=== PATIENT | female | born 1970 | race Caucasian/White ===

== ENCOUNTER 2017-12-13 10:17 | Emergency (ER) | payer OTHER ==
[~2017-12-13] VITALS: Ht 157.5 cm; Wt 70.0 kg
[~2017-12-13 10:17] MED LIST: CALC1TAB10 PO; CINN1CAP2 PO; CITA40TA12 PO; LEVO88TA PO; MULTIVITAMIN PACKET PO; RANI300T2 PO
[2017-12-13 10:23] VITALS: TEMP 36.7; Ht 157.5 cm; Wt 70.0 kg
[2017-12-13] MEDS ORDERED: ACETAMINOPHEN 500 MG TAB PO STA (10:45)
--- NOTE | 2017-12-13 10:46 | EMERGENCY ROOM VISIT NOTE ---
History Report prepared by Jesenia: Marielena Castillo Under the Supervision of: Dr. Freddy Sargent M.D. First contact with patient: 10:20 Chief Complaint: URINARY SYMPTOMS Stated Complaint: BLADDER,DOC REFERRED History of Present Illness The patient is a 47 year old white female with a past medical history of hypothyroidism, breast lumpectomy, and left kidney donation who presents to the ED with a cc of constant urinary symptoms beginning yesterday. Pt states that she has been having dysuria and burning with urination. Today she is complaining of pressure and right back pain that radiates into the RLQ of her abdomen. She reports that she took Diflucan yesterday and it did improve her symptoms. Positive urinary urgency and pressure. Negative fever, leg pain and swelling. She notes that her most recent creatinine was 2.0. Source of History: patient Onset: yesterday Position: other (urinary) Quality: burning Timing: constant Associated Symptoms: + abdominal pain, + back pain, + urinary symptoms, No fevers Note: Pt denies leg pain and swelling. Review of Systems See HPI for pertinent positives and negatives. A total of ten systems were reviewed and were otherwise negative. Past Medical & Surgical Medical Problems: (1) Endometriosis (2) Hypothyroid Family History No pertinent family history stated. Social History Smoking Status: Never Smoker Marital Status: Housing Status: lives with family Occupation Status: employed Current/Historical Medications Scheduled Calcium Carbonate-Cholecalcife (Calcium 1000 + D), 1 TAB PO QPM Cinnamon (Cinnamon), 1 TAB PO QAM Citalopram Hydrobromide (Celexa), 40 MG PO QAM Levofloxacin (Levaquin), 500 MG PO DAILY Levothyroxine Sodium (Unithroid), 125 MCG PO DAILY Multivitamins/Minerals (Mvi With Minerals), 1 PKT PO DAILY Ranitidine (Zantac), 300 MG PO QAM Allergies Coded Allergies: No Known Allergies (Unverified , 12/13/17) Physical Exam Vital Signs Date Time Temp Pulse Resp B/P (MAP) Pulse Ox O2 Delivery O2 Flow Rate FiO2 12/13/17 13:31 69 18 107/48 98 Room Air 12/13/17 11:51 66 18 116/57 98 Room Air 12/13/17 10:23 36.7 72 18 145/74 100 Room Air Physical Exam GENERAL: Awake, alert, well-appearing, NAD HENT: Normocephalic, atraumatic. EYES: Normal conjunctiva. Sclera non-icteric. NECK: Supple. No nuchal rigidity. FROM. RESPIRATORY: CTAB, no rhonchi, wheezing, crackles CARDIAC: RRR, no MRG ABDOMEN: Soft, NTND, BS+ MSK: No chest wall TTP, no LE edema. Right sided CVA TTP. Negative obturators, negative psoas. NEURO: GCS 15, CN 2-12 intact, moves all 4s on command SKIN: No rash or jaundice noted. Some small incisional scars along left abdomen. Medical Decision & Procedures ER Provider Diagnostic Interpretation: Radiology results as stated below per my review and radiologist interpretation: ABD/PELVIS WITHOUT FOR STONE COMPARISON STUDY: None. FINDINGS: Lung bases are clear. The left kidney is absent. Liver spleen and pancreas are uniform. The right kidney is negative for hydronephrosis. There is no evidence for an obstructing right urinary tract calculus. Bowel pattern is nonobstructive. Visualized components of the appendix are unremarkable. Uterus is anteflexed. Bladder is midline. There is no free fluid within the pelvic cul-de-sac. IMPRESSION: 1. Prior left effectively. 2. No acute process of the abdomen or pelvis. The above report was generated using voice recognition software. It may contain grammatical, syntax or spelling errors. Electronically signed by: Je Garay M.D. 12/13/2017 1:13 PM Dictated Date/Time: 12/13/2017 1:10 PM Laboratory Results 12/13/17 11:00 Red Blood Count 4.34, Mean Corpuscular Volume 85.5, Mean Corpuscular Hemoglobin 29.0, Mean Corpuscular Hemoglobin Concent 34.0, Mean Platelet Volume 9.8, Neutrophils (%) (Auto) 75.4, Lymphocytes (%) (Auto) 15.2, Monocytes (%) (Auto) 8.5, Eosinophils (%) (Auto) 0.7, Basophils (%) (Auto) 0.1, Neutrophils # (Auto) 5.62, Lymphocytes # (Auto) 1.13, Monocytes # (Auto) 0.63, Eosinophils # (Auto) 0.05, Basophils # (Auto) 0.01 12/13/17 11:00 Test 12/13/17 10:38 12/13/17 11:00 Urine Color YELLOW Urine Appearance CLEAR (CLEAR) Urine pH 6.0 (4.5-7.5) Urine Specific [place] 1.010 (1.000-1.030) Urine Protein NEG (NEG) Urine Glucose (UA) NEG (NEG) Urine Ketones NEG (NEG) Urine Occult Blood NEG (NEG) Urine Nitrite NEG (NEG) Urine Bilirubin NEG (NEG) Urine Urobilinogen NEG (NEG) Urine Leukocyte Esterase SMALL (NEG) Urine WBC (Auto) /hpf (0-5) Urine RBC (Auto) /hpf (0-4) Urine Hyaline Casts (Auto) /lpf (0-5) Urine Epithelial Cells (Auto) /lpf (0-5) Urine Bacteria (Auto) (NEG) Urine RBC 0-4 /hpf (0-4) Urine WBC 10-30 /hpf (0-5) Urine Epithelial Cells >30 /lpf (0-5) Urine Bacteria 1+ (NEG) Urine Test NEG (NEG) White Blood Count 7.45 K/uL (4.8-10.8) Red Blood Count 4.34 M/uL (4.2-5.4) Hemoglobin 12.6 g/dL (12.0-16.0) Hematocrit 37.1 % (37-47) Mean Corpuscular Volume 85.5 fL (80-100) Mean Corpuscular Hemoglobin 29.0 pg (25-34) Mean Corpuscular Hemoglobin Concent 34.0 g/dl (32-36) Platelet Count 328 K/uL (130-400) Mean Platelet Volume 9.8 fL (7.4-10.4) Neutrophils (%) (Auto) 75.4 % Lymphocytes (%) (Auto) 15.2 % Monocytes (%) (Auto) 8.5 % Eosinophils (%) (Auto) 0.7 % Basophils (%) (Auto) 0.1 % Neutrophils # (Auto) 5.62 K/uL (1.4-6.5) Lymphocytes # (Auto) 1.13 K/uL (1.2-3.4) Monocytes # (Auto) 0.63 K/uL (0.11-0.59) Eosinophils # (Auto) 0.05 K/uL (0-0.5) Basophils # (Auto) 0.01 K/uL (0-0.2) RDW Standard Deviation 41.1 fL (36.4-46.3) RDW Coefficient of Variation 13.1 % (11.5-14.5) Immature Granulocyte % (Auto) 0.1 % Immature Granulocyte # (Auto) 0.01 K/uL (0.00-0.02) Anion Gap 7.0 mmol/L (3-11) Est Creatinine Clear Calc Drug Dose 56.4 ml/min Estimated GFR () 67.0 Estimated GFR (Non- 57.8 BUN/Creatinine Ratio 19.2 (10-20) Calcium Level 9.3 mg/dl (8.5-10.1) Total Bilirubin 0.5 mg/dl (0.2-1) Direct Bilirubin 0.1 mg/dl (0-0.2) Aspartate Amino Transf (AST/SGOT) 19 U/L (15-37) Alanine Aminotransferase (ALT/SGPT) 30 U/L (12-78) Alkaline Phosphatase 81 U/L (45-117) Total Protein 7.4 gm/dl (6.4-8.2) Albumin 3.7 gm/dl (3.4-5.0) Lipase 111 U/L (73-393) Laboratory results reviewed by me Medications Administered Medications (Trade) Dose Ordered Sig/Nina Route Start Time Stop Time Status Last Admin Dose Admin Acetaminophen (Tylenol Tab) 1,000 mg NOW STAT PO 12/13/17 10:45 12/13/17 10:46 DC 12/13/17 10:52 1,000 MG Ceftriaxone Sodium (Rocephin Inj) 1 gm NOW STAT IV 12/13/17 11:28 12/13/17 11:43 DC 12/13/17 11:47 1 GM ED Course 1020: The patient was evaluated in room B10. A complete history and physical exam was performed. 1317: I reevaluated and updated the patient. She is doing well. 1335: I reevaluated the patient. Discussed results and discharge instructions: She verbalized understanding and agreement. The patient is ready for discharge. Medical Decision The patient is a 47 year old white female with a past medical history of hypothyroidism, breast lumpectomy, and left kidney donation who presents to the ED with a cc of constant urinary symptoms beginning yesterday. Differential diagnosis: Etiologies such as renal colic, appendicitis, diverticulitis, mesenteric ischemia, aortic pathology, infections, inflammatory bowel disease, PUD, biliary pathology, UTI, as well as others were entertained. Patient was seen and evaluated at the bedside. Patient does have a prior history of single kidney secondary to organ donation. Patient states that she presented to her primary care clinic today where she was evaluated and there was concern about possible infectious versus kidney stone versus appendicitis. On exam the patient has complained of increased urinary frequency, blood in the urine, and some dysuria. Patient states that she does have irregular periods and believe this is related to menopause. Patient otherwise is very well- appearing. Patient does have some mild right-sided CVA tenderness to palpation. Patient has no abdominal tenderness. Of note patient's kidney was removed on the left side. Also of note the patient had a oophrectomy on the right side. Patient did have blood work completed along with CT of the abdomen pelvis. Contrast was not used given the patient's unilateral kidney and unknown kidney function. She is urinalysis to show questionable infection but does have a lot of epithelial cells. Given that the patient does have CVA tenderness to palpation with unilateral kidney patient was empirically treated with Rocephin. Kidney function is essentially at baseline. Patient does not have an elevated or low white blood cell count. Patient's CT did have oral contrast noted. Patient had a negative CT scan. Given the patient's findings with a normal white cell count no abdominal pain less likely appendix. The appendix was partially visualized on the CT but no acute findings noted. No stones noted either. Patient was given antibiotics to treat for a possible pyelo-. I believe the patient is suitable for outpatient follow-up and treatment given her stable vital signs, lack of fever, and normal white cell count. Patient was told to follow-up with her PCP. Patient was given strict follow-up, discharge, and return precautions. All questions were answered. Patient was deemed suitable for outpatient follow-up at this time. Patient agreed with the plan of care and was safely discharged home. The chart was completed utilizing [employer] voice recognition software. Grammatical errors, random word insertions, pronoun errors, and incomplete sentences are an occasional consequence of this system due to software limitations, ambient noise, and hardware issues. Any formal questions or concerns about the content, text, or information contained within the body of this dictation should be directly addressed to the physician for clarification. Medication Reconcilliation Current Medication List: was personally reviewed by me Blood Pressure Screening Patient's blood pressure: Elevated blood pressure Blood pressure disposition: Elevated BP felt to be situational Impression Primary Impression: Pyelonephritis Scribe Attestation The scribe's documentation has been prepared under my direction and personally reviewed by me in its entirety. I confirm that the note above accurately reflects all work, treatment, procedures, and medical decision making performed by me. Departure Information Dispostion Home / Self-Care Prescriptions Levofloxacin (Levaquin) 500 Mg Tab 500 MG PO DAILY for 5 Days, #5 TAB Prov: Freddy Sargent M.D. 12/13/17 Referrals Rossi Barreto MD (PCP) Patient Instructions My [facility], Pyelonephritis - [facility], Pyelonephritis Dc Additional Instructions Please return to the emergency department if you have worsening or recurrent symptoms not amenable to at-home treatment. Please call for a follow-up appointment with her primary care physician. Please take your medications as prescribed. If you have other concerns and/or complaints please feel free to also call your primary care physician's office or return the ED for further evaluation, management, and treatment. You may take tylenol 1000 mg every 6 hours as needed for pain. You may take motrin and tylenol separately or at the same time. Take your medications as prescribed. If taking an antibiotic consider taking a probiotic and/or eating yogurt, but at the least, please take with food as it can cause upset stomach. If culture results are not available at discharge, if they are positive for concern of infection, you will be informed of the results as soon as they are available. You have been examined and treated today on an emergency basis only. This is not a substitute for, or an effort to provide, complete comprehensive medical care. It is impossible to recognize and treat all injuries or illnesses in a single emergency department visit. It is therefore important that you follow up closely with [facility], your PCP, and/or your specialist(s). Call as soon as possible for an appointment. Thank you for your time and consideration. I look forward to speaking with you again soon. Please don't hesitate to call us if you have any questions.
[2017-12-13 11:11] LABS: BASO % 0.1 %; BASO ABS # 0.01 K/uL (0-0.2); EOS % 0.7 %; EOS ABS # 0.05 K/uL (0-0.5); HEMATOCRIT 37.1 % (37-47); HEMOGLOBIN 12.6 g/dL (12.0-16.0); IG# 0.01 K/uL (0.00-0.02); LYMPH % 15.2 %; LYMPH ABS # 1.13 K/uL (1.2-3.4); MEAN CELL VOLUME 85.5 fL (80-100); MEAN PLATELET VOLUME 9.8 fL (7.4-10.4); MONO % 8.5 %; MONO ABS # 0.63 K/uL (0.11-0.59); NEUT % 75.4 %; NEUT ABS # 5.62 K/uL (1.4-6.5); PLATELET COUNT 328 K/uL (130-400); RED CELL DISTRIBUTION WIDTH CV 13.1 % (11.5-14.5); RED CELL DISTRIBUTION WIDTH SD 41.1 fL (36.4-46.3); WHITE BLOOD COUNT 7.45 K/uL (4.8-10.8)
[2017-12-13] MEDS ORDERED: [UNRECOGNIZED DRUG - CODE] PO (11:13)
[2017-12-13] MEDS ORDERED: MULT-513 PO (11:13)
[2017-12-13 11:27] LABS: ALBUMIN 3.7 gm/dl (3.4-5.0); CALCIUM 9.3 mg/dl (8.5-10.1); CREATININE 1.13 mg/dl (0.60-1.20); POTASSIUM 3.8 mmol/L (3.5-5.1)
[2017-12-13] MEDS ORDERED: CEFTRIAXONE SOD INJ 1 GM ADDVIAL IV STA (11:28)
[2017-12-13 11:30] LABS: TOTAL PROTEIN 7.4 gm/dl (6.4-8.2)
--- NOTE | 2017-12-13 13:14 | DIAGNOSTIC IMAGING REPORT ---
ABD/PELVIS WITHOUT FOR STONE CT DOSE: 804.00 mGy.cm HISTORY: Flank pain single kidney TECHNIQUE: Multiaxial CT images of the abdomen and pelvis were performed without the use of intravenous and oral contrast according to the standard department stone protocol. A dose lowering technique was utilized adhering to the principles of ALARA. COMPARISON STUDY: None. FINDINGS: Lung bases are clear. The left kidney is absent. Liver spleen and pancreas are uniform. The right kidney is negative for hydronephrosis. There is no evidence for an obstructing right urinary tract calculus. Bowel pattern is nonobstructive. Visualized components of the appendix are unremarkable. Uterus is anteflexed. Bladder is midline. There is no free fluid within the pelvic cul-de-sac. IMPRESSION: 1. Prior left effectively. 2. No acute process of the abdomen or pelvis. The above report was generated using voice recognition software. It may contain grammatical, syntax or spelling errors. Electronically signed by: Je Garay M.D. 12/13/2017 1:13 PM Dictated Date/Time: 12/13/2017 1:10 PM
[2017-12-13] MEDS ORDERED: LEVO-366 PO (13:33)
[2017-12-13 14:27] VITALS: BP 105/49; PULSE 69; O2SAT 99
== END 2017-12-13 14:28 | disposition home or self-care (01) ==
LOC: C.EDB 10:19
DX: N12 Tubulo-interstitial nephritis, not specified as acute or chronic (principal); E03.9 Hypothyroidism, unspecified; N80.9 Endometriosis, unspecified; R03.0 Elevated blood-pressure reading, without diagnosis of hypertension; Z90.5 Acquired absence of kidney